=== PATIENT | female | born 1985 | race African-American/Black ===

== ENCOUNTER 2021-11-10 12:33 | Day surgery (SDC) | payer OTHER ==
[2021-11-10] MEDS ORDERED: Betamet Acet/Betamet Na Ph 30 MG/5 ML VIAL ONE (12:52)
== END 2021-11-10 13:06 | disposition home health service (06) ==
LOC: CSHLD/OP 12:33
PROVIDERS: ATTEND Obstetrics & Gynecology
DX: Z29.8 Encounter for other specified prophylactic measures (principal); O09.529 Supervision of elderly multigravida, unspecified trimester
CPT/HCPCS: J0702

== ENCOUNTER 2021-11-11 13:30 | Day surgery (SDC) | payer OTHER ==
[2021-11-11] MEDS ORDERED: Betamet Acet/Betamet Na Ph 30 MG/5 ML VIAL IM SCH (14:15)
== END 2021-11-11 14:20 | disposition home health service (06) ==
LOC: CSHLD/OP 13:30
PROVIDERS: ATTEND Obstetrics & Gynecology
DX: Z29.8 Encounter for other specified prophylactic measures (principal); O09.529 Supervision of elderly multigravida, unspecified trimester
CPT/HCPCS: J0702

== ENCOUNTER 2021-12-19 11:32 | Inpatient (IN) | payer OTHER ==
[2021-12-19] MEDS: Lactated Ringer's 1,000 ML IV SCH ×3 (12:19→23:12)
[2021-12-19] MEDS ORDERED: Bicitra 30 ML UDCUP PO PRN (12:37)
[2021-12-19] MEDS ORDERED: Promethazine HCl 25 MG/ML VIAL IM PRN ×2 (12:37→13:35)
[2021-12-19] MEDS ORDERED: Famotidine/PF 20 mg/2ml Vial SLOW IVP PRN (12:37)
[2021-12-19] MEDS ORDERED: Ondansetron PF 4 MG/2 ML Vial IVP PRN ×3 (12:37→19:23)
[2021-12-19] MEDS ORDERED: hydrALAZINE 20 MG/ML VIAL SLOW IVP PRN ×2 (12:37→19:23)
[2021-12-19] MEDS ORDERED: ceFAZolin 2 GM/Dextrose 50 ML 2 GM in Premix Bag 1 BAG IVPB SCH (12:45)
[2021-12-19 12:50] LABS: Hemoglobin 12.7 g/dL (12.0-15.5); Mean Corpuscular Hemoglobin 27.4 pg (27.0-33.0); Mean Corpuscular Volume 83.2 fl (81.6-98.3); Mean Platelet Volume 12.7 fl (7.4-10.4); Platelet Count 189 10x3/uL (150-450); RBC Distribution Width 14.3 % (11.5-14.5); Red Blood Cell (RBC) Count 4.63 10x6/uL (3.90-5.03); White Blood Cell (WBC) Count 7.5 10x3/uL (3.5-10.5)
[2021-12-19 13:09] VITALS: BMI 29.1
[2021-12-19 13:21] LABS: Hep B Surf Ag Non-Reactive S/CO (NonReactive); Syphilis Antibody Nonreactive (Nonreactive); Syphilis Antibody Index 0.03 S/CO (<1.00 Non-Reactive)
[2021-12-19] MEDS ORDERED: Naloxone HCl 0.4 mg/ml Vial IVP PRN ×2 (13:35)
[2021-12-19] MEDS ORDERED: Naloxone HCl 0.4 mg/ml Vial IV PRN (13:35)
[2021-12-19] MEDS ORDERED: L&D-Morphine 4 MG/ML VIAL SLOW IVP PRN (13:35)
[2021-12-19] MEDS ORDERED: Meperidine HCl/PF 25 MG/ML VIAL SLOW IVP PRN (13:35)
[2021-12-19] MEDS ORDERED: Ketorolac Tromethamine 30 MG/ML VIAL IVP PRN (13:35)
[2021-12-19] MEDS ORDERED: Ondansetron HCl/PF 4 MG/2 ML Vial IVP PRN (13:35)
[2021-12-19] MEDS ORDERED: Fentanyl 100 MCG/2 ML VIAL SLOW IVP PRN (13:35)
[2021-12-19] MEDS ORDERED: Promethazine HCl 25 MG SUPP PR PRN (13:35)
[2021-12-19] MEDS ORDERED: Hydrocerin (Eucerin) Cream 120 gm Jar TOP PRN (13:35)
[2021-12-19] MEDS ORDERED: Communication Order-Pharmacy FS SCH (13:45)
[2021-12-19] MEDS ORDERED: Ketorolac Tromethamine 30 MG/ML VIAL IVP SCH (13:45)
[2021-12-19 13:52] LABS: HBSAg Index 0.13 S/CO (0-0.99)
[2021-12-19] MEDS ORDERED: Carboprost 250 MCG/ML AMP ONE (14:01)
[2021-12-19] MEDS ORDERED: Azithromycin 500 MG VIAL ONE (14:14)
[2021-12-19] MEDS ORDERED: PHENYLEPHRINE-NS 100 MCG/ML 10 ML SYRINGE ONE (14:18)
[2021-12-19] MEDS ORDERED: Phenylephrine 40 MG/NS 250 ML 250 ML ONE (14:19)
[2021-12-19] MEDS ORDERED: Oxytocin 10 UNITS/ML VIAL ONE (14:19)
[2021-12-19] MEDS ORDERED: Ketorolac Tromethamine 30 MG/ML VIAL ONE (14:19)
[2021-12-19] MEDS ORDERED: Morphine PF 10 MG/10 ML VIAL ONE (14:20)
[2021-12-19] MEDS ORDERED: Midazolam HCl 2 mg/2 ml Vial ONE (15:19)
[2021-12-19] MEDS ORDERED: NS w/ Oxytocin 30 units 500 ML ONE (16:18)
[2021-12-19] MEDS ORDERED: NS w/ Oxytocin 30 units 500 ML IVPB PRN (17:07)
[2021-12-19] MEDS ORDERED: Lanolin Ointment 7 GM TUBE TOP PRN (19:23)
[2021-12-19] MEDS ORDERED: Varicella virus, LIVE 0.5 ML VIAL SC ONE (19:23)
[2021-12-19] MEDS ORDERED: Bisacodyl 10 MG SUPP PR PRN (19:23)
[2021-12-19] MEDS ORDERED: Misoprostol 200 MCG TAB PR PRN (19:23)
[2021-12-19] MEDS ORDERED: Boostrix 0.5 ML (Tdap) VIAL IM ONE (19:23)
[2021-12-19] MEDS ORDERED: Methylergonovine 0.2 MG/ML VIAL IM PRN (19:23)
[2021-12-19] MEDS ORDERED: Zolpidem Tartrate 5 MG TAB PO PRN (19:23)
[2021-12-19] MEDS ORDERED: Measles/Mumps/Rubella 10 MCG/0.5 ML VIAL SC ONE (19:23)
[2021-12-19] MEDS ORDERED: NS w/ Oxytocin 30 units 500 ML IV SCH (20:30)
[2021-12-19] MEDS: Ferrous Sulfate 325 MG TAB PO SCH (23:13)
[2021-12-19] MEDS: Docusate 100 MG CAP PO SCH (23:13)
[2021-12-19] MEDS: diphenhydrAMINE 50 MG/ML VIAL IVP PRN (23:24)
[2021-12-20] MEDS ORDERED: HYDROcodone/Acetaminophen 5/325 mg Tablet PO PRN ×2 (01:45)
[2021-12-20 04:39] LABS: Hemoglobin 10.3 g/dL (12.0-15.5); Mean Corpuscular HGB CONC 33.8 g/dL (32.0-36.0); Mean Corpuscular Hemoglobin 27.9 pg (27.0-33.0); Mean Corpuscular Volume 82.7 fl (81.6-98.3); Mean Platelet Volume 12.1 fl (7.4-10.4); Platelet Count 177 10x3/uL (150-450); RBC Distribution Width 13.7 % (11.5-14.5); Red Blood Cell (RBC) Count 3.69 10x6/uL (3.90-5.03); White Blood Cell (WBC) Count 12.5 10x3/uL (3.5-10.5)
[2021-12-20] MEDS: diphenhydrAMINE 50 MG/ML VIAL IVP PRN ×2 (05:00→09:24)
[2021-12-20] MEDS: Lactated Ringer's 1,000 ML IV SCH ×3 (05:05→23:04)
[2021-12-20] MEDS ORDERED: Ondansetron PF 4 MG/2 ML Vial IVP PRN (05:40)
[2021-12-20] MEDS: Ferrous Sulfate 325 MG TAB PO SCH ×2 (07:49→20:58)
[2021-12-20 07:56] LABS: SARS-CoV-2 PCR by NAA Not Detected (NotDetected)
[2021-12-20] MEDS: Simethicone Chewable 80 MG TAB PO PRN (09:23)
[2021-12-20] MEDS: Docusate 100 MG CAP PO SCH ×2 (09:24→21:09)
[2021-12-20] MEDS: Prenatal Vitamin 1 TAB PO SCH (09:24)
[2021-12-20] MEDS: Ibuprofen 800 MG TAB PO SCH (21:09)
[2021-12-21] MEDS: Ibuprofen 800 MG TAB PO SCH (05:22)
[2021-12-21 07:34] VITALS: TEMP 98.4
[2021-12-21] MEDS: Simethicone Chewable 80 MG TAB PO PRN (09:04)
[2021-12-21] MEDS: Docusate 100 MG CAP PO SCH (09:04)
[2021-12-21] MEDS: Prenatal Vitamin 1 TAB PO SCH (09:04)
[2021-12-21] MEDS: Ferrous Sulfate 325 MG TAB PO SCH (09:06)
[2021-12-21 11:43] VITALS: BP 144/98
== END 2021-12-21 13:40 | disposition home or self-care (01) | DRG 788 ==
LOC: CSHLD/OP 11:32 → CSHLD 14:05 → CSHPP 22:49
PROVIDERS: ADMIT Obstetrics & Gynecology; ATTEND Obstetrics & Gynecology
PROC: 10D00Z1 Extraction of Products of Conception, Low, Open Approach (ICD-10-PCS; principal; 2021-12-19)
DX: O36.5932 Maternal care for other known or suspected poor fetal growth, third trimester, fetus 2 (principal); O30.043 Twin pregnancy, dichorionic/diamniotic, third trimester; O76 Abnormality in fetal heart rate and rhythm complicating labor and delivery; O34.211 Maternal care for low transverse scar from previous cesarean delivery; Z3A.28 28 weeks gestation of pregnancy; Z37.2 Twins, both liveborn; Z20.822 Contact with and (suspected) exposure to COVID-19
CPT/HCPCS: 36415; 51702; 85027; 86780; 86850; 86900; 86901; 87340; 88307; 99285; J0690; J1200; J1885; J2250; J2274; J2590; J3490; J7120; S0028; U0003; U0005